=== PATIENT | male | born 1985 | race Hispanic/Latino ===

== ENCOUNTER 2021-11-18 21:40 | Emergency (ER) | payer OTHER, SELFPAY ==
[2021-11-18] MEDS ORDERED: Mag-Al 1200 mg/1200 mg/30 ML UDCUP ONE (23:30)
[2021-11-18] MEDS ORDERED: Lidocaine Viscous Sol 2% 15 ml UD Cup ONE (23:30)
== END 2021-11-19 00:34 | disposition home or self-care (01) ==
LOC: ERS 21:40
DX: R07.89 Other chest pain (principal); I10 Essential (primary) hypertension
CPT/HCPCS: 71045; 93005

== ENCOUNTER 2023-03-29 07:04 | Outpatient (CLI) | payer OTHER | END 2023-03-29 07:05 | disposition home or self-care (01) | LOC: BICULT 07:04 | PROVIDERS: ATTEND Nurse Practitioner Family | DX: R10.9 Unspecified abdominal pain (principal); N50.811 Right testicular pain; N50.812 Left testicular pain | CPT/HCPCS: 76700; 76870; 93976 ==